=== PATIENT | male | born 1940 | race African-American/Black ===

== ENCOUNTER 2018-09-21 05:28 | Inpatient (IN) | payer OTHER, MEDICAID ==
[~2018-09-21] VITALS: Ht 177.8 cm; Wt 50.3 kg
--- NOTE | 2018-09-21 05:43 | Emergency Room Report ---
History of Present Illness General Chief Complaint: Multiple Trauma/Fall Source: Patient, Family Member (Ovidio Tucker MD) Present Illness HPI This is a 78-year-old male with a history of Crohn's status post colostomy. He also has a history of chronic Mckeon. He presents with chief complaint of weakness and fall. He said he try bedbug at [place] no up and fell. Denies any pain. Initially EMS said knee pain the patient has no complaint. He complaining of feeling weak. No fever or chills. No nausea no vomiting. Nothing made it better. Nothing made it worse. He said his Mckeon is leaking. Further history from his daughter who came later. Patient saw his urologist at the [facility] few days ago. He had a indwelling Mckeon that was removed. He was unable to pass urine so another catheter was placed. According to the daughter , it was very difficult placement. He had to try 3 times before getting it in. He complaining of pain afterward. She didn't take him to the ER and the ER doctor had trouble putting it in. A urologist came in and finally able to put it in. patient is scheduled for TURP procedure this coming Wednesday. According to her, he's been getting weaker in the last couple days. This morning he try to get out of bed and was tangled in the bed sheet. His right foot got caught underneath the dresser. He complaining of right ankle pain. (Ovidio Tucker MD) Allergies: Coded Allergies: No Known Allergies (Unverified , 09/21/18) Patient History Past Medical History: see triage record, old chart reviewed, DM, other - Crohn' s Past Surgical History: other - colostomy Pertinent Family History: none Social History: Denies: smoking Immunizations: other Reviewed Nursing Documentation: PMH: Agreed; PSxH: Agreed (Ovidio Tcuker MD) Nursing Documentation-PMH Past Medical History: No History, Except For Hx Diabetes: Yes (Ovidio Tucker MD) Review of Systems Constitutional: Reports: weakness Eye: Denies: eye pain, blurred vision ENT: Denies: ear pain, nose congestion, throat swelling Respiratory: Denies: cough, shortness of breath Cardiovascular: Denies: chest pain, palpitations Gastrointestinal: Denies: abdominal pain, diarrhea, nausea, vomiting Musculoskeletal: Denies: back pain, joint pain Skin: Denies: rash Neurological: Denies: headache, numbness Endocrine: Denies: increased thirst, increased urine Hematologic/Lymphatic: Denies: easy bruising All Other Systems: negative except mentioned in HPI (Ovidio Tucker MD) Physical Exam Vital Signs Date Time Temp Pulse Resp B/P (MAP) Pulse Ox O2 Delivery O2 Flow Rate FiO2 09/21/18 05:26 100.6 106 12 108/55 93 vitals with fever Sp02 EP Interpretation: reviewed, normal General Appearance: no apparent distress, alert, thin, Chronically Ill Head: normocephalic, atraumatic Eyes: bilateral eye PERRL, bilateral eye EOMI ENT: hearing grossly normal, normal pharynx Neck: full range of motion, supple, no meningismus Respiratory: chest non-tender, lungs clear, normal breath sounds Cardiovascular #1: regular rate, rhythm, no murmur Gastrointestinal: normal bowel sounds, non tender, no mass, no organomegaly, no bruit, non-distended, other - Colostomy bag Genitourinary: other - He has a chronic Mckeon. It's all taped up. Musculoskeletal: back normal, normal range of motion, tender - Tenderness over the right ATFL. no deformity Neurologic: alert Psychiatric: mood/affect normal Skin: warm/dry (Ovidio Tucker MD) Medical Decision Making Diagnostic Impression: Primary Impression: Sepsis Qualified Codes: A41.9 - Sepsis, unspecified organism Additional Impressions: UTI (urinary tract infection) Qualified Codes: N30.00 - Acute cystitis without hematuria Right ankle sprain Qualified Codes: S93.491A - Sprain of other ligament of right ankle, initial encounter ER Course Patient with weakness and low-grade fever. With his multiple Mckeon catheter attempts, I suspect he has a urinary tract infection. Antibiotics given. Because of the difficulty of getting the catheter in, we'll hold off changing the Mckeon for now. Patient will be admitted versus transfer based on his insurance. (Ovidio Tucker MD) ER Course I was notified by registration that patient will be admitted to this hospital. Appropriate O contracted physician contacted, patient also requested Tylenol for discomfort of the lower back and is admitted for further care (Arminda Osuna DO) EKG Diagnostic Results Rate: normal Rhythm: NSR ST Segments: no acute changes (Ovidio Tucker MD) Rhythm Strip Diag. Results EP Interpretation: yes Rate: 97 Rhythm: NSR, no PVC's, no ectopy (Ovidio Tucker MD) Chest X-Ray Diagnostic Results Chest X-Ray Diagnostic Results : Chest X-Ray Ordered: Yes # of Views/Limited/Complete: 1 View Indication: Shortness of Breath EP Interpretation: Yes Interpretation: no consolidation, no effusion, no pneumothorax, no acute cardiopulmonary disease Impression: No acute disease Electronically Signed by: Ovidio Tucker MD (Ovidio Tucker MD) Other X-Ray Diagnostic Results Other X-Ray Diagnostic Results : X-Ray ordered: Rt ankle xrays # of Views/Limited Vs Complete: 3 View Indication: Pain EP Interpretation: Yes Interpretation: no dislocation, no soft tissue swelling, no fractures Impression: No acute disease Electronically Signed by: Ovidio Tucker MD (Ovidio Tucker MD) Last Vital Signs Date Time Temp Pulse Resp B/P (MAP) Pulse Ox O2 Delivery O2 Flow Rate FiO2 09/21/18 05:26 100.6 106 12 108/55 93 Status: improved (Ovidio Tucker MD) Ovidio Tucker MD September 21, 2018 05:43 Arminda Osuna DO September 21, 2018 10:21
[2018-09-21] MEDS ORDERED: Acetaminophen 500mg (ES) tab ORAL ONE (05:45)
--- NOTE | 2018-09-21 05:50 | NUR ---
ED Nurse Note: RECIEVED PT BIBA FROM HOME WITH C/O S/P MECHANICAL FALL, PT IS AWAKE, ALERT AND ORIENTED X 4, PT DENIES CP, SOB AND HAS C/O BILAT KNEE AND ANKLE PAIN, DENIES K.O, PT IMMEDIATELY GOWNED AND PLACED ON CARDIAC MONITORING, ALSO PLACED IV LINE AND LABS DRAWN, WILL RESUME CARE ORDERED AND CLOSELY MONITOR, MD IMMEDIATELY AT BEDSIDE.
[2018-09-21] MEDS ORDERED: Cefepime HCl 1 GM in D5W 55 ML IVPB ONE (06:15)
[2018-09-21] MEDS ORDERED: MEGACE40 MG PO (06:25)
[2018-09-21] MEDS ORDERED: OXYBUTYNIN CHLOR5 M1 ORAL (06:25)
[2018-09-21] MEDS ORDERED: FLOMAX0.4 MG ORAL (06:25)
[2018-09-21] MEDS ORDERED: FERROUS SULFAT325 MG ORAL (06:25)
[2018-09-21 06:27] LABS: BASOPHILS % (AUTO) 0.5 % (0.0-2.0); EOSINOPHILS % (AUTO) 0.3 % (0.0-3.0); HEMATOCRIT 31.8 % (42.0-52.0); HEMOGLOBIN 9.7 G/DL (14.2-18.0); LYMPHOCYTES % (AUTO) 7.5 % (20.0-45.0); MEAN CORPUSCULAR VOLUME 78 FL (80-99); MONOCYTES % (AUTO) 13.1 % (1.0-10.0); NEUTROPHILS % (AUTO) 78.5 % (45.0-75.0); PLATELET COUNT 257 K/UL (150-450); RED BLOOD COUNT 4.08 M/UL (4.70-6.10); WHITE BLOOD COUNT 10.8 K/UL (4.8-10.8)
[2018-09-21] MEDS ORDERED: Acetaminophen Soln 160mg/5ml ORAL ONE ×2 (06:30→10:15)
[2018-09-21] MEDS ORDERED: ACETAMINOPHEN325 M1 ORAL (06:30)
[2018-09-21 06:32] LABS: ANION GAP 10 mmol/L (5-15); BLOOD UREA NITROGEN 32 mg/dL (7-18); CALCIUM 8.5 MG/DL (8.5-10.1); CARBON DIOXIDE 23 MMOL/L (21-32); CHLORIDE 105 MMOL/L (98-107); POTASSIUM 3.9 MMOL/L (3.5-5.1); SODIUM 138 MMOL/L (136-145)
[2018-09-21 06:34] LABS: APPEARANCE,URINE SLIGHTLY CLOUDY; BILIRUBIN, URINE NEGATIVE (NEGATIVE); COLOR,URINE PALE YELLOW; GLUCOSE, URINE (UA) NEGATIVE (NEGATIVE); KETONES,URINE NEGATIVE (NEGATIVE); LEUKOCYTE ESTERASE ,URINE 3+ (NEGATIVE); NITRITE,URINE POSITIVE (NEGATIVE); PH,URINE 5 (4.5-8.0); PROTEIN,URINE 3+ (NEGATIVE); UROBILINOGEN,URINE NORMAL MG/DL (0.0-1.0)
[2018-09-21 06:35] VITALS: BP 129/59
[2018-09-21 06:45] LABS: ALANINE AMINOTRANSFERASE 23 U/L (12-78); ALBUMIN/GLOBULIN RATIO 0.6 (1.0-2.7); ALKALINE PHOSPHATASE 52 U/L (46-116); ASPARTATE AMINO TRANSFERASE 24 U/L (15-37); BILIRUBIN,TOTAL 0.4 MG/DL (0.2-1.0); CKMB 1.5 NG/ML (0.0-3.6); CREATINE KINASE 239 U/L (26-308)
--- NOTE | 2018-09-21 06:45 | NUR ---
ED Nurse Note: PT MEDICATED ORDERED WITH TYLENOL, PT CAN NOT SWALLOW PILLS, NFORMED AND ORDER CHANGED TO LIQUID, PT TOOK AND TOLERATED WELL, WILL CONTINUE TO MONITOR, PT DAUGHTER HAS ARRIVED AT BEDSIDE.
--- NOTE | 2018-09-21 07:14 | NUR ---
HAND-OFF: Report given to JENNIFER NGUYEN , FOR SHIFT CHANGE, PT IN BED RESTING QUIETLY, IV SITE PATENT WITH FLUIDS INFUSING, PT ON CARDIAC MONITORING, NAD NOTED.
[2018-09-21 07:25] VITALS: BP 109/49
[2018-09-21 10:03] VITALS: BP 107/49
--- NOTE | 2018-09-21 10:05 | NUR ---
ED Nurse Note: ordered diet tray as Dr. Grewal ordered.
--- NOTE | 2018-09-21 10:25 | NUR ---
ED Nurse Note: provided breakfast tray for the patient.
--- NOTE | 2018-09-21 10:53 | NUR ---
*-* INSURANCE *-* ER REPORT, MED,VITAL AND LABS WERE SENT TO: [facility] [employer] P:[phone] F: [phone]
--- NOTE | 2018-09-21 11:09 | NUR ---
ED Nurse Note: report given to LAUREL RN, nurse is calling [facility] for a bed.
--- NOTE | 2018-09-21 11:23 | Infectious Diseases Prog Note ---
Assessment/Plan Assessment/Plan Full consult dictated: A) 1) complicated uti, suprapubic catheter, hx uti/abx, bph, kidney stones 2) pmh noted 3) allergies - nkda P) 1) meropenem 2) check urine culture 3) thank you Subjective Allergies: Coded Allergies: No Known Allergies (Unverified , 09/21/18) Objective Vital Signs Last 24 Hour Vital Signs Date Time Temp Pulse Resp B/P (MAP) Pulse Ox O2 Delivery O2 Flow Rate FiO2 09/21/18 10:48 99.5 09/21/18 10:03 99.5 91 19 107/49 100 Room Air 09/21/18 07:25 99.5 80 16 109/49 99 Room Air 09/21/18 07:06 100.4 09/21/18 06:35 100.6 92 20 129/59 99 09/21/18 05:50 106 12 09/21/18 05:26 100.6 106 12 108/55 93 Height (Feet): 5 Height (Inches): 10.00 Weight (Pounds): 111 Laboratory Tests Test 09/21/18 05:50 09/21/18 06:10 White Blood Count 10.8 K/UL (4.8-10.8) Red Blood Count 4.08 M/UL (4.70-6.10) L Hemoglobin 9.7 G/DL (14.2-18.0) L Hematocrit 31.8 % (42.0-52.0) L Mean Corpuscular Volume 78 FL (80-99) L Mean Corpuscular Hemoglobin 23.7 PG (27.0-31.0) L Mean Corpuscular Hemoglobin Concent 30.5 G/DL (32.0-36.0) L Red Cell Distribution Width 18.0 % (11.6-14.8) H Platelet Count 257 K/UL (150-450) Mean Platelet Volume 5.6 FL (6.5-10.1) L Neutrophils (%) (Auto) 78.5 % (45.0-75.0) H Lymphocytes (%) (Auto) 7.5 % (20.0-45.0) L Monocytes (%) (Auto) 13.1 % (1.0-10.0) H Eosinophils (%) (Auto) 0.3 % (0.0-3.0) Basophils (%) (Auto) 0.5 % (0.0-2.0) Sodium Level 138 MMOL/L (136-145) Potassium Level 3.9 MMOL/L (3.5-5.1) Chloride Level 105 MMOL/L (98-107) Carbon Dioxide Level 23 MMOL/L (21-32) Anion Gap 10 mmol/L (5-15) Blood Urea Nitrogen 32 mg/dL (7-18) H Creatinine 2.0 MG/DL (0.55-1.30) H Estimat Glomerular Filtration Rate mL/min (>60) Glucose Level 124 MG/DL (74-106) H Lactic Acid Level 1.30 mmol/L (0.4-2.0) Calcium Level 8.5 MG/DL (8.5-10.1) Total Bilirubin 0.4 MG/DL (0.2-1.0) Aspartate Amino Transf (AST/SGOT) 24 U/L (15-37) Alanine Aminotransferase (ALT/SGPT) 23 U/L (12-78) Alkaline Phosphatase 52 U/L (46-116) Total Creatine Kinase 239 U/L (26-308) Creatine Kinase MB 1.5 NG/ML (0.0-3.6) Creatine Kinase MB Relative Index 0.6 Troponin I 0.014 ng/mL (0.000-0.056) Total Protein 7.7 G/DL (6.4-8.2) Albumin 3.0 G/DL (3.4-5.0) L Globulin 4.7 g/dL Albumin/Globulin Ratio 0.6 (1.0-2.7) L Urine Color Pale yellow Urine Appearance Slightly cloudy Urine pH 5 (4.5-8.0) Urine Specific [place] 1.010 (1.005-1.035) Urine Protein 3+ (NEGATIVE) H Urine Glucose (UA) Negative (NEGATIVE) Urine Ketones Negative (NEGATIVE) Urine Blood 5+ (NEGATIVE) H Urine Nitrite Positive (NEGATIVE) H Urine Bilirubin Negative (NEGATIVE) Urine Urobilinogen Normal MG/DL (0.0-1.0) Urine Leukocyte Esterase 3+ (NEGATIVE) H Urine RBC 10-15 /HPF (0 - 0) H Urine WBC Tntc /HPF (0 - 0) H Urine Squamous Epithelial Cells Occasional /LPF Urine Bacteria Moderate /HPF (NONE) H Alkasspooles,Salam MD September 21, 2018 11:23
--- NOTE | 2018-09-21 11:29 | NUR ---
ED Nurse Note: called [facility] again, they said they need another 10 minutes for the bed.
--- NOTE | 2018-09-21 11:42 | Diagnostic Imaging Report ---
Indication: Altered mental status Technique: One view of the chest Comparison: none Findings: Lungs and pleural spaces are clear. The heart size is normal. Impression: No acute process
--- NOTE | 2018-09-21 12:25 | NUR ---
ED Nurse Note: charge nursed called [facility] for bed. patient has fever 101.[address] Osuna. ice pack applied to the patient.
[2018-09-21 12:30] VITALS: BP 120/47
--- NOTE | 2018-09-21 12:38 | NUR ---
ED Nurse Note: endorsed all care to LAUREL RODRIGUEZ. patient is being transferred to with his belongings. Daughter at bedside Endorsed to LAUREL RODRIGUEZ that patient has fever and ER MD notified.
--- NOTE | 2018-09-21 12:50 | NUR ---
NURSE NOTES: Received report from JENNIFER Nugent. Patient transferred from ED to , family member at the bedside, stated will take all belongings home, signed with RN, IV site on right FA 20G, asymptomatic, patent, intact. Patient in bed resting, no active s/s cardiac, respiratory distress noticed at this time. Endorsed Tylenol given for fever of 100.6. Patient has Mckeon catheter prior to admission, has colostomy on lower right abd, draining well to gravity. VS at the time of arrival, 117/55, HR 87, RR18, T 100.4, on room air 100%. Bed in lowest position ,side rails upx3, call light within reach. Will continue to monitor.
--- NOTE | 2018-09-21 13:00 | NUR ---
NURSE NOTES: Skin assessment done along with physical assessment, skin is intact, on bilateral heels, blanchable redness, skin intact, Cavilon applied, Optifoam dressing on as prevention method.
--- NOTE | 2018-09-21 13:47 | NUR ---
NURSE NOTES: Paged Dr. Clark for admission order, per Dr. Clark in a meeting will call soon for admission order. Will continue to follow up.
--- NOTE | 2018-09-21 14:36 | NUR ---
NURSE NOTES: Received admission order from Dr. Clark, order noted, entered, carried out. Will continue to monitor.
--- NOTE | 2018-09-21 14:37 | NUR ---
NURSE NOTES: Dr. Clark made aware patient admitted with Mckeon Catheter, Per Dr. Clark okrenee to continue Mckeon Catheter. Order noted, entered, carried out.
[2018-09-21] MEDS: D5W w/KCl 20mEq 1,000 ML IV SCH (15:11)
--- NOTE | 2018-09-21 15:55 | NUR ---
NURSE NOTES: Dr. Clark made aware patient and family member would like to speak with medical case manager regarding placement for [facility]. Per isabel Ennis for medical case manager, order noted, entered, carried out. Will continue to monitor.
[2018-09-21 16:00] VITALS: BP 127/55
[2018-09-21] MEDS: Megace 400mg/10ml Susp ORAL SCH (17:32)
--- NOTE | 2018-09-21 19:31 | NUR ---
HAND-OFF: Report given to JENNIFER Gannon.
[2018-09-21 20:00] VITALS: BP 118/55
[2018-09-22] VITALS: BP 117/55
--- NOTE | 2018-09-22 | NUR ---
NURSE NOTES: Received patient from RN Phan, patient is asleep in his bed, daughter by bedside, patient is with high temp 102.2, cooling measures are implemented, Tylenol is administered as ordered, temp re checked, 101.8, will continue to monitor.
[2018-09-22] MEDS: D5W w/KCl 20mEq 1,000 ML IV SCH ×3 (01:12→23:08)
[2018-09-22 04:00] VITALS: BP 109/51
--- NOTE | 2018-09-22 07:13 | NUR ---
HAND-OFF: Report given to Doug RODRIGUEZ.
--- NOTE | 2018-09-22 07:56 | NUR ---
NURSE NOTES: Received patient from Suhail RODRIGUEZ, patient is up in bed resting, no distress noted, bed is locked and lowest position, call light within reach, will continue to monitor. Addendum: 09/22/18 at 0806 by LUCIANO BANSAL RN Received report from Janiya RODRIGUEZ
[2018-09-22 08:00] VITALS: BP 113/56
[2018-09-22] MEDS: Megace 400mg/10ml Susp ORAL SCH ×2 (09:44→17:18)
[2018-09-22 09:53] LABS: BASOPHILS % (AUTO) 0.4 % (0.0-2.0); EOSINOPHILS % (AUTO) 0.6 % (0.0-3.0); HEMOGLOBIN 8.9 G/DL (14.2-18.0); LYMPHOCYTES % (AUTO) 7.5 % (20.0-45.0); MEAN CORPUSCULAR VOLUME 78 FL (80-99); MONOCYTES % (AUTO) 12.9 % (1.0-10.0); NEUTROPHILS % (AUTO) 78.6 % (45.0-75.0); PLATELET COUNT 195 K/UL (150-450); RED BLOOD COUNT 3.71 M/UL (4.70-6.10); RED CELL DISTRIBUTION WIDTH 18.1 % (11.6-14.8); WHITE BLOOD COUNT 12.9 K/UL (4.8-10.8)
--- NOTE | 2018-09-22 10:00 | NUR ---
*-* INSURANCE *-* UPDATED CLINICALS WERE FAXED TO: [facility] [employer] P:[phone] F: [phone]
[2018-09-22 10:20] LABS: PHOSPHORUS 1.9 MG/DL (2.5-4.9)
[2018-09-22 10:30] LABS: ANION GAP 8 mmol/L (5-15); BLOOD UREA NITROGEN 21 mg/dL (7-18); CARBON DIOXIDE 22 MMOL/L (21-32); CHLORIDE 105 MMOL/L (98-107); CHOLESTEROL 159 MG/DL (< 200); HDL CHOLESTEROL 50 MG/DL (40-60); POTASSIUM 3.7 MMOL/L (3.5-5.1); SODIUM 135 MMOL/L (136-145); TRIGLYCERIDES 92 MG/DL (30-150)
--- NOTE | 2018-09-22 11:22 | NUR ---
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 UTI . RIGHT ANKLE SPRAIN VS: BP 107/49,P 106, T 100.6, RR 20, SpO2 93 WBC 12.9, RBC 3.71, H&H 8.9/29.0, BUN 32, Cr 2.0 IS:NS x1L IV CEFEPIME 55ml IVPB TYLENOL 1,000mg ADMITTED TO MED/SURG DCP: RETURN TO HOME
[2018-09-22 12:00] VITALS: BP 118/59
--- NOTE | 2018-09-22 14:17 | Cardiology Report ---
APPROVED REPORT EKG Measurement Heart [id number] IA [id number] Normal sinus rhythm Normal ECG
--- NOTE | 2018-09-22 15:30 | Infectious Diseases Prog Note ---
Assessment/Plan Assessment/Plan Full consult dictated: A) 1) gram neg uti/pyelonephritis, sepsis, leukocytosis, fevers, suprapubic catheter, hx uti/abx, bph, kidney stones 2) pmh noted 3) allergies - nkda P) 1) meropenem 2) check urine culture 3) will f/u Subjective Allergies: Coded Allergies: ASPIRIN (Verified Allergy, Unknown, 09/21/18) Objective Vital Signs Last 24 Hour Vital Signs Date Time Temp Pulse Resp B/P (MAP) Pulse Ox O2 Delivery O2 Flow Rate FiO2 09/22/18 12:00 97.9 82 18 118/59 (78) 97 09/22/18 08:45 Room Air 09/22/18 08:00 97.7 79 18 113/56 (75) 09/22/18 04:00 97.3 82 18 109/51 (70) 09/22/18 00:52 101.8 09/22/18 00:00 102.2 80 20 117/55 (75) 09/21/18 21:00 Room Air 09/21/18 20:00 99.3 92 20 118/55 (76) 09/21/18 16:00 100.8 96 19 127/55 (79) 95 Height (Feet): 5 Height (Inches): 10.00 Weight (Pounds): 111 Microbiology Date/Time Source Procedure Growth Status 09/21/18 06:10 Blood Blood Culture - Preliminary NO GROWTH AFTER 24 HOURS Resulted 09/21/18 05:50 Blood Blood Culture - Preliminary NO GROWTH AFTER 24 HOURS Resulted 09/21/18 06:10 Urine,Clean Catch Urine Culture - Preliminary Gram Negative Colin Resulted Laboratory Tests Test 09/22/18 09:35 White Blood Count 12.9 K/UL (4.8-10.8) H Red Blood Count 3.71 M/UL (4.70-6.10) L Hemoglobin 8.9 G/DL (14.2-18.0) L Hematocrit 29.0 % (42.0-52.0) L Mean Corpuscular Volume 78 FL (80-99) L Mean Corpuscular Hemoglobin 24.0 PG (27.0-31.0) L Mean Corpuscular Hemoglobin Concent 30.7 G/DL (32.0-36.0) L Red Cell Distribution Width 18.1 % (11.6-14.8) H Platelet Count 195 K/UL (150-450) Mean Platelet Volume 5.3 FL (6.5-10.1) L Neutrophils (%) (Auto) 78.6 % (45.0-75.0) H Lymphocytes (%) (Auto) 7.5 % (20.0-45.0) L Monocytes (%) (Auto) 12.9 % (1.0-10.0) H Eosinophils (%) (Auto) 0.6 % (0.0-3.0) Basophils (%) (Auto) 0.4 % (0.0-2.0) Sodium Level 135 MMOL/L (136-145) L Potassium Level 3.7 MMOL/L (3.5-5.1) Chloride Level 105 MMOL/L (98-107) Carbon Dioxide Level 22 MMOL/L (21-32) Anion Gap 8 mmol/L (5-15) Blood Urea Nitrogen 21 mg/dL (7-18) H Creatinine 2.0 MG/DL (0.55-1.30) H Estimat Glomerular Filtration Rate mL/min (>60) Glucose Level 174 MG/DL (74-106) H Hemoglobin A1c 6.3 % (4.3-6.0) H Calcium Level 8.0 MG/DL (8.5-10.1) L Phosphorus Level 1.9 MG/DL (2.5-4.9) L Triglycerides Level 92 MG/DL (30-150) Cholesterol Level 159 MG/DL (< 200) LDL Cholesterol 87 mg/dL (<100) HDL Cholesterol 50 MG/DL (40-60) Cholesterol/HDL Ratio 3.2 (3.3-4.4) L Thyroid Stimulating Hormone (TSH) 4.713 uiU/mL (0.358-3.740) Current Medications Medications (Trade) Dose Ordered Sig/Dev Route PRN Reason Start Time Stop Time Status Last Admin Dose Admin Acetaminophen (Tylenol) 650 mg Q6H PRN ORAL Mild Pain/Temp > 100.5 09/21/18 14:15 10/21/18 14:14 09/21/18 23:38 Dextrose/ Electrolytes 1,000 ml @ 100 mls/hr Q10H IV 09/21/18 15:00 10/21/18 14:59 09/22/18 13:20 Ferrous Sulfate (Feosol) 325 mg DAILY ORAL 09/22/18 09:00 10/22/18 08:59 09/22/18 09:44 Megestrol Acetate (Megace) 400 mg TWICE A DAY ORAL 09/21/18 18:00 10/21/18 17:59 09/22/18 09:44 Meropenem 500 mg/ Sodium Chloride 50 ml @ 100 mls/hr Q12HR@0300,1500 IVPB 09/21/18 15:00 09/26/18 14:59 09/22/18 03:03 Morteza Sierra MD September 22, 2018 15:30
[2018-09-22 16:00] VITALS: BP 101/46
--- NOTE | 2018-09-22 19:38 | NUR ---
HAND-OFF: Report given to Suhail RODRIGUEZ.
[2018-09-22 20:00] VITALS: BP 109/51
--- NOTE | 2018-09-22 20:30 | NUR ---
NURSE NOTES: Pt is in bed, awake and alert. No acute distress noted. Pt has a colostomy, stool was sent last shift for occult blood to lab. Pt's family is by bedside. D5 NS 20mEq KCL 100ml/hr. Mckeon cath in place, draining yellow urine. Bed locked low in position,side rails up and call light within reach.
[2018-09-22] MEDS: Atorvastatin 20mg tab ORAL SCH (23:08)
--- NOTE | 2018-09-22 23:15 | Consultation ---
DATE OF CONSULTATION: 09/22/2018 INFECTIOUS DISEASE CONSULTATION CONSULTING PHYSICIAN: Morteza Sierra M.D. ATTENDING PHYSICIAN: Aubrey Clark M.D. REFERRING PHYSICIAN: Aubrey Clark M.D. REASON FOR CONSULTATION: Gram-negative urinary tract infection, pyelonephritis, sepsis, leukocytosis, fevers, and SIRS criteria. CHIEF COMPLAINT: The patient's chief complaint coming in to the hospital is sepsis and urinary tract infection. HISTORY OF PRESENT ILLNESS: This is a 78-year-old male, who comes in to [facility] with leukocytosis and fevers. The patient has a gram-negative urinary tract infection, likely pyelonephritis with fevers. The patient has sepsis syndrome. Infectious Disease consultation is requested. The patient has a history of recurrent urinary tract infections and history of suprapubic catheter and I saw the patient yesterday and placed him on meropenem. Urine culture grew gram-negative organisms, identification pending. REVIEW OF SYSTEMS: CONSTITUTIONAL: The patient has suprapubic catheter. The patient is alert and responsive. He did come in with fevers and chills. HEAD AND NECK: No head pain or neck pain. CARDIAC: No chest pain. GASTROINTESTINAL: No nausea, vomiting, abdominal pain, or diarrhea. GENITOURINARY: Suprapubic catheter. No CVA tenderness. PULMONARY: No congestion or shortness of breath. SKIN: No rash. EXTREMITY: No extremity pain. NEUROLOGIC: No seizures. PAST MEDICAL HISTORY: The patient's past medical history includes the following. The patient has a past medical history of Crohn's disease, and history of colostomy. It is unclear, I thought it was a suprapubic catheter, but it looks like he also has chronic Mckeon. There is a history of diabetes mellitus. No history of hypertension mentioned in the outside records. It looks like he also has history of urinary tract infections in the past and ankle sprain. MEDICATIONS: Upon reviewing the MAR, he is on the following medications. He is on meropenem, acetaminophen, ferrous sulfate, and Megace. Outside medications were noted and reconciliated. He is on acetaminophen, ferrous sulfate, Megestrol, tamsulosin and and oxybutynin. ALLERGIES: Aspirin. SOCIAL HISTORY: Negative for smoking, alcohol, or drug abuse. FAMILY HISTORY: Noncontributory. PHYSICAL EXAMINATION: VITAL SIGNS: Temperature on admission was 100.6, as high as 102.2, currently temperature is 97.9, pulse rate is 82, respiratory rate 18, blood pressure is 118/59, and saturation 97%. Pulse rate on admission was 106 and respiratory rate on admission was 20. GENERAL: Alert and responsive, in no acute distress. HEAD AND NECK: Oral exam, no thrush. Eye exam, no icterus. Neck is supple. No JVD. Normocephalic. LUNGS: Clear bilaterally. No rhonchi or rales. HEART: Regular. No obvious gallop or murmur. ABDOMEN: Soft. Positive bowel sounds. Nontender. SKIN: No rash. MUSCULOSKELETAL: No effusion. Legs are without cellulitis. PERIPHERAL VASCULAR: No cyanosis or gangrene. GENITOURINARY: He has catheter. Urine is cloudy. LINE SITES: Without phlebitis. NEUROLOGIC: Generalized weakness and responsive. The patient is alert and responsive. LABORATORY DATA: Laboratory data is as follows. White count 12.9 and hemoglobin 8.9. Creatinine 2.0. LFTs were noted. Urinalysis had 3+ leukocyte esterase and too many to count white blood cells. CULTURES: Blood cultures are negative. Urine culture greater than 100,000 gram-negative rods. Chest x-ray showed no acute disease. ASSESSMENT AND PLAN: 1. The patient has sepsis syndrome with SIRS criteria. The patient has gram-negative urinary tract infection and pyelonephritis with sepsis and complicated urinary tract infection. The patient has leukocytosis and fevers. He did come in with tachycardia also. Continue meropenem at this time adjusting for elevated creatinine for gram-negative urinary tract infection, pyelonephritis and sepsis. Continue meropenem. Check urine culture. Check laboratories. 2. Elevated creatinine. 3. Anemia. 4. Per the records, history of diabetes. Blood sugar treatment per primary. 5. Crohn's disease. 6. Colostomy. 7. Chronic catheter. 8. No history of hypertension or cancer. 9. Continue treatment per primary consultants. 10. Allergies to aspirin. 11. Social history is negative. 12. Family history is noncontributory. 13. MAR was noted. 14. Case was discussed with JENNIFER. Salpat Alkasspooles, M.D. DR: SHARON JOB#: [id number] CC:
[2018-09-23] VITALS: BP 112/50
--- NOTE | 2018-09-23 00:15 | History and Physical Report ---
DATE OF ADMISSION: 09/21/2018 HISTORY OF PRESENT ILLNESS: This 78-year-old man came to the hospital because of weakness and a fall at home. He was not badly injured. He was evaluated in the emergency department because of severe weakness. He was found to have fever and urinary tract infection with an indwelling Mckeon catheter. Admission was arranged. He was normotensive with no signs of shock or sepsis. PAST MEDICAL HISTORY: Crohn's disease with colostomy many years ago and chronic Mckeon catheter, which he states is due to kidney stones. It appears he had a urinary retention recently. They had difficulty placing a catheter and so, it has not been removed. He is scheduled for transurethral resection of prostate and evidently has prostate enlargement. He states he is diabetic, but he is on no medications and it is controlled with diet. MEDICATIONS: Reviewed. ALLERGIES: Aspirin. REVIEW OF SYSTEMS: He eats very slowly. He is malnourished. He is on Megace. He has some aches and pains from the fall, but no evidence of severe trauma. He denies any history of cancer, cardiac, or pulmonary disease. PHYSICAL EXAMINATION: GENERAL: The patient is alert and responsive. He appears weak. VITAL SIGNS: He had 102.2 fever since admission, but now it is down to normal. Other vital signs are normal. He appears malnourished with muscle wasting. HEENT: The head is normocephalic. NECK: He has no jugular venous distention. CHEST: Clear. CARDIAC: Rhythm is regular. ABDOMEN: Soft with a colostomy in place. Mckeon catheter is in place. EXTREMITIES: No clubbing, cyanosis, or edema. LABORATORY DATA: Laboratory studies show moderate anemia with hemoglobin 8.9 and MCV is low. Platelets are normal. White count is 12,900. Chemistry shows BUN is 32 and creatinine 2.0. This improved to 21 and 2.0 respectively today with intravenous hydration. Blood sugar is 174. A1c is 6.3. TSH is 4.7, mildly elevated. ASSESSMENT: 1. Severe weakness and fall. 2. Urinary tract infection with history of kidney stones. 3. Mild diabetes. 4. Hyperlipidemia. 5. Anemia. 6. Hypothyroidism. 7. Allergy to aspirin. PLAN: The patient will be treated with antibiotics. Infectious Disease consultation has been obtained. We will start thyroid and cholesterol medication. We will get Physical therapy evaluation. Aubrey Clark M.D. DR: MALVIN JOB#: [id number] CC: Aubrey Clark M.D.; Fax#: [phone]
--- NOTE | 2018-09-23 01:30 | Consultation ---
DATE OF CONSULTATION: 09/22/2018 ADDENDUM INFECTIOUS DISEASES CONSULTATION The patient also has history of . He has suprapubic catheter and Mckeon catheter. He has history of BPH and also has a history of kidney stones in addition to what I discussed above in the previous consultation. Morteza Sierra M.D. DR: SHARON JOB#: [id number] CC:
[2018-09-23 04:00] VITALS: BP 110/62
[2018-09-23] MEDS: Levothyroxine 25mcg tab ORAL SCH (06:19)
[2018-09-23] MEDS: D5W w/KCl 20mEq 1,000 ML IV SCH (06:19)
--- NOTE | 2018-09-23 06:30 | NUR ---
NURSE NOTES: Pt is in bed, awake and alert. NO acute distress noted. D5W with 20mEq KCL running at 100ml/hr. Colostomy bag is draing brown stool.
[2018-09-23 07:27] LABS: BASOPHILS % (AUTO) 0.7 % (0.0-2.0); EOSINOPHILS % (AUTO) 1.9 % (0.0-3.0); HEMATOCRIT 32.8 % (42.0-52.0); HEMOGLOBIN 10.1 G/DL (14.2-18.0); LYMPHOCYTES % (AUTO) 10.5 % (20.0-45.0); MEAN CORPUSCULAR VOLUME 79 FL (80-99); MONOCYTES % (AUTO) 10.2 % (1.0-10.0); NEUTROPHILS % (AUTO) 76.8 % (45.0-75.0); PLATELET COUNT 240 K/UL (150-450); RED BLOOD COUNT 4.17 M/UL (4.70-6.10)
[2018-09-23 07:30] LABS: % IRON SATURATION 4 % (15-50); ANION GAP 10 mmol/L (5-15); BLOOD UREA NITROGEN 20 mg/dL (7-18); CALCIUM 8.6 MG/DL (8.5-10.1); CARBON DIOXIDE 22 MMOL/L (21-32); CHLORIDE 102 MMOL/L (98-107); CREATININE 1.9 MG/DL (0.55-1.30); IRON 9 ug/dL (50-175); SODIUM 134 MMOL/L (136-145); TOTAL IRON BINDING CAPACITY 245 ug/dL (250-450)
--- NOTE | 2018-09-23 07:30 | NUR ---
HAND-OFF: Report given to JENNIFER Ayon.
--- NOTE | 2018-09-23 07:45 | NUR ---
NURSE NOTES: Received patient on bed, awake. IV site intact and patent. Mckeon catheter in place and intact, patent and draining. Heel dressings dry and intact. Bed in low and locked position,c all light in reach. No signs of respiratory distress or pain. Room board updated, will continue to monitor.
[2018-09-23 08:00] VITALS: BP 127/66
[2018-09-23] MEDS: Megace 400mg/10ml Susp ORAL SCH ×2 (09:31→17:46)
--- NOTE | 2018-09-23 11:24 | NUR ---
*-* INSURANCE *-* UPDATED CLINICALS & REVIEW WERE FAXED TO: [facility] P:[phone] F: [phone]
[2018-09-23 12:02] VITALS: BP 116/76
--- NOTE | 2018-09-23 12:02 | NUR ---
RD ASSESSMENT & RECOMMENDATIONS SEE CARE ACTIVITY FOR COMPLETE ASSESSMENT DAILY ESTIMATED NEEDS: Needs based on Underweight, DM 64.8kg 30-35 kcals/kg 5322-8067 total kcals 1-1.5 g protein/kg 65-97 g total protein 25-30 mL/kg 1582-0419 total fluid mLs NUTRITION DIAGNOSIS: Increased kcal and pro needs r/t underweight status and wasting as evidenced by pt @est 86% of [place] Body Weight, noted generalized moderate wasting, currently on appetite stimulants. 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
--- NOTE | 2018-09-23 13:14 | NUR ---
CHARGE NURSE NOTES: Pt is c/o being nauseated. Left message for Dr Clark . Will f/u
--- NOTE | 2018-09-23 14:41 | NUR ---
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 UTI . RIGHT ANKLE SPRAIN VS: BP 112/50, P 65, T 99.6, RR 20, SpO2 97 WBC 11.0, RBC 4.17, Hgb 10.1, Hct 32.8, Na 134, BUN 20, Cr 1.9 IS:MEROPENEM 50ml IVPB D5/ELECTROLYTES x1L IV MEGACE 400mg LIPITOR 20mg SYNTHROID 25mcg ZOFRAN 4mg MED/SURG STATUS
--- NOTE | 2018-09-23 14:44 | NUR ---
P.T Note: P.T evaluation completed and treatment initiated. Please refer to P.T evaluation for current functional status. Pt presented generalized weakness limiting mobility independence. Pt current require MOD A X 1 for bed mobilities, MOD/MAX A X 1 for transfers and MOD A X 1 for Gait/ambulation activities using the FWW. Skilled P.T service is warranted to improve his strength, balance and endurance to increase his mobility independence. Recommend SNF for further rehab [facility]. Thank you for this referral.
--- NOTE | 2018-09-23 14:54 | General Progress Note ---
Assessment/Plan Assessment/Plan: 1. Severe weakness and fall. 2. Urinary tract infection with history of kidney stones. 3. Mild diabetes. 4. Hyperlipidemia. 5. Anemia. 6. Hypothyroidism. 7. Allergy to aspirin. urine R imipemen called ID change IV fluid re Na Zofran for nausea Subjective Constitutional: Reports: malaise, weakness Gastrointestinal/Abdominal: Reports: nausea, poor appetite Allergies: Coded Allergies: ASPIRIN (Verified Allergy, Unknown, 09/21/18) Objective Last 24 Hour Vital Signs Date Time Temp Pulse Resp B/P (MAP) Pulse Ox O2 Delivery O2 Flow Rate FiO2 09/23/18 12:02 97.5 83 20 116/76 (89) 97 09/23/18 09:00 Room Air 09/23/18 08:00 97.5 75 20 127/66 (86) 97 09/23/18 04:00 98.4 65 18 110/62 (78) 97 09/23/18 00:00 99.6 72 18 112/50 (70) 97 09/22/18 21:00 Room Air 09/22/18 20:00 100.7 76 16 109/51 (70) 97 09/22/18 16:00 98.5 75 18 101/46 (64) 97 Intake and Output 09/22/18 09/23/18 19:00 07:00 Intake Total 220 ml 1490 ml Output Total 300 ml 900 ml Balance -80 ml 590 ml Intake Oral 120 ml 240 ml IV Total 100 ml 1250 ml Output Urine Total 650 ml Stool Total 300 ml 250 ml # Bowel Movements 3 Laboratory Tests 09/22/18 17:00: Stool Occult Blood Positive 09/23/18 06:32: White Blood Count 11.0H, Red Blood Count 4.17L, Hemoglobin 10.1L, Hematocrit 32.8L, Mean Corpuscular Volume 79L, Mean Corpuscular Hemoglobin 24.3L, Mean Corpuscular Hemoglobin Concent 30.9L, Red Cell Distribution Width 18.0H, Platelet Count 240, Mean Platelet Volume 5.5L, Neutrophils (%) (Auto) 76.8H, Lymphocytes (%) (Auto) 10.5L, Monocytes (%) (Auto) 10.2H, Eosinophils (%) (Auto ) 1.9, Basophils (%) (Auto) 0.7, Sodium Level 134L, Potassium Level 4.0, Chloride Level 102, Carbon Dioxide Level 22, Anion Gap 10, Blood Urea Nitrogen 20H, Creatinine 1.9H, Estimat Glomerular Filtration Rate , Glucose Level 132H, Calcium Level 8.6, Iron Level 9L, Total Iron Binding Capacity 245L, Percent Iron Saturation 4L, Unsaturated Iron Binding 236 Height (Feet): 5 Height (Inches): 10.00 Weight (Pounds): 111 General Appearance: no apparent distress, cachetic Cardiovascular: normal rate Objective Mckeon, colostomy Aubrey Clark MD September 23, 2018 14:54
[2018-09-23 16:00] VITALS: BP 131/67
[2018-09-23] MEDS: Cefepime HCl 1 GM in D5W 55 ML IVPB SCH (17:46)
--- NOTE | 2018-09-23 19:20 | NUR ---
HAND-OFF: Report given to BELLE Goodwin.
--- NOTE | 2018-09-23 19:30 | NUR ---
NURSE NOTES: RECEIVED PATIENT LYING IN BED, AWAKE, ALERT/ORIENTED X3, NOTED WITH PERIODS OF CONFUSION/FORGETFULNESS, DENIES PAIN. NO SIGNS AND SYMPTOMS OF ACUTE CARDIO RESPIRATORY DISTRESS/SHORTNESS OF BREATH, NO PERIPHERAL EDEMA NOTED. ABDOMEN SOFT/NON DISTENDED/BOWEL SOUNDS AUDIBLE, NO N/V/D, COLOSTOMY INTACT TO LEFT QUADRANT, NOTED WITH LIQUID GREENISH STOOL. SIDE RAILS UP X3/BED IN LOWEST POSITION FOR SAFETY. CALL LIGHT WITHIN REACH. DAUGHTER REMAIN AT BEDSIDE. NAD.
[2018-09-23 20:00] VITALS: BP 113/66
[2018-09-23] MEDS: Atorvastatin 20mg tab ORAL SCH (20:50)
[2018-09-24] VITALS: BP 125/65
[2018-09-24 04:00] VITALS: BP 136/96
[2018-09-24] MEDS: Levothyroxine 25mcg tab ORAL SCH (06:33)
--- NOTE | 2018-09-24 06:53 | NUR ---
NURSE NOTES: RESTED WELL, NO SIGNIFICANT CHANGE OF CONDITION NOTED THROUGHOUT THE NIGHT. SAFETY MAINTAINED. NAD.
--- NOTE | 2018-09-24 07:30 | NUR ---
HAND-OFF: Report given to JENNIFER DOYLE.
[2018-09-24 08:00] VITALS: BP 133/64
--- NOTE | 2018-09-24 08:00 | NUR ---
NURSE NOTES: Patient is awake and alert,IV fluids infusing as ordered.Noted colostomy bag on the right side abdomen ,stoma pink ,liquid green stool noted,Mckeon catheter is in place with santo color urine noted.No complaints at this time,call light within reach,bed alarm is on.
[2018-09-24] MEDS: Megace 400mg/10ml Susp ORAL SCH ×2 (09:45→18:56)
[2018-09-24 12:00] VITALS: BP 131/73
--- NOTE | 2018-09-24 13:45 | NUR ---
PT NOTE: Pt refused to participate in PT treatment session due to feeling fatigued. Family member present. Pt educated on the importance of performing gentle therapeutic exercises for ease of functional ADLs. Pt continued to refuse PT treatment session. Notified nurse of pt status. Left nurse call light within easy reach and all needs met.
--- NOTE | 2018-09-24 14:31 | Infectious Diseases Prog Note ---
Assessment/Plan Assessment/Plan ASSESSMENT AND PLAN: 1. pseudomonas uti, sepsis, fevers, leukocytosis - cefepime - day # 2, plan on 10 day tx course - clinically better - monitor labs 2. Elevated creatinine. 3. Anemia. 4. Per the records, history of diabetes. Blood sugar treatment per primary. 5. Crohn's disease. 6. Colostomy. 7. Chronic catheter. 8. No history of hypertension or cancer. 9. Continue treatment per primary consultants. 10. Allergies to aspirin. 11. Social history is negative. 12. Family history is noncontributory. 13. MAR was noted. 14. Case was discussed with RN. Subjective Constitutional: Denies: fever HEENT: Denies: congestion Respiratory: Denies: shortness of breath Cardiovascular: Denies: chest pain Gastrointestinal/Abdominal: Denies: nausea, vomiting, diarrhea Genitourinary: Reports: other - + catheter Neurologic: Denies: headache Psychiatric: Denies: depression Skin: Denies: rash Hematologic: Denies: bleeding Musculoskeletal: Denies: pain Allergies: Coded Allergies: ASPIRIN (Verified Allergy, Unknown, 09/21/18) Objective Vital Signs Last 24 Hour Vital Signs Date Time Temp Pulse Resp B/P (MAP) Pulse Ox O2 Delivery O2 Flow Rate FiO2 09/24/18 12:00 97.7 95 17 131/73 (92) 98 09/24/18 09:00 Room Air 09/24/18 08:00 99.8 79 18 133/64 (87) 97 09/24/18 04:00 98.3 92 17 136/96 (109) 96 09/24/18 00:00 99.1 79 19 125/65 (85) 98 09/23/18 21:00 Room Air 09/23/18 20:00 97.5 90 16 113/66 (82) 95 09/23/18 16:00 98.4 89 18 131/67 (88) 99 Height (Feet): 5 Height (Inches): 10.00 Weight (Pounds): 111 General Appearance: no acute distress HEENT: normocephalic, atraumatic, anicteric, mucous membranes moist Respiratory/Chest: lungs clear, normal breath sounds, no accessory muscle use Cardiovascular: normal rate, regular rhythm, no gallop/murmur Abdomen: normal bowel sounds, soft, non tender, no organomegaly, non distended Genitourinary: other - + catheter - urine cloudy Extremities: no cyanosis Skin: no rash Neurologic/Psychiatric: vp corporate partnerships II-XII grossly normal, alert, oriented x 3, responsive Lymphatic: no neck adenopathy Musculoskeletal: no effusion Objective chest x-ray - nad Microbiology Date/Time Source Procedure Growth Status 09/21/18 06:10 Blood Blood Culture - Preliminary NO GROWTH AFTER 48 HOURS Resulted 09/21/18 06:10 Urine,Clean Catch Urine Culture - Final Pseudomonas Aeruginosa Complete Labs Test 09/22/18 09:35 09/22/18 17:00 09/23/18 06:32 White Blood Count 12.9 K/UL (4.8-10.8) 11.0 K/UL (4.8-10.8) Red Blood Count 3.71 M/UL (4.70-6.10) 4.17 M/UL (4.70-6.10) Hemoglobin 8.9 G/DL (14.2-18.0) 10.1 G/DL (14.2-18.0) Hematocrit 29.0 % (42.0-52.0) 32.8 % (42.0-52.0) Mean Corpuscular Volume 78 FL (80-99) 79 FL (80-99) Mean Corpuscular Hemoglobin 24.0 PG (27.0-31.0) 24.3 PG (27.0-31.0) Mean Corpuscular Hemoglobin Concent 30.7 G/DL (32.0-36.0) 30.9 G/DL (32.0-36.0) Red Cell Distribution Width 18.1 % (11.6-14.8) 18.0 % (11.6-14.8) Platelet Count 195 K/UL (150-450) 240 K/UL (150-450) Mean Platelet Volume 5.3 FL (6.5-10.1) 5.5 FL (6.5-10.1) Neutrophils (%) (Auto) 78.6 % (45.0-75.0) 76.8 % (45.0-75.0) Lymphocytes (%) (Auto) 7.5 % (20.0-45.0) 10.5 % (20.0-45.0) Monocytes (%) (Auto) 12.9 % (1.0-10.0) 10.2 % (1.0-10.0) Eosinophils (%) (Auto) 0.6 % (0.0-3.0) 1.9 % (0.0-3.0) Basophils (%) (Auto) 0.4 % (0.0-2.0) 0.7 % (0.0-2.0) Sodium Level 135 MMOL/L (136-145) 134 MMOL/L (136-145) Potassium Level 3.7 MMOL/L (3.5-5.1) 4.0 MMOL/L (3.5-5.1) Chloride Level 105 MMOL/L (98-107) 102 MMOL/L (98-107) Carbon Dioxide Level 22 MMOL/L (21-32) 22 MMOL/L (21-32) Anion Gap 8 mmol/L (5-15) 10 mmol/L (5-15) Blood Urea Nitrogen 21 mg/dL (7-18) 20 mg/dL (7-18) Creatinine 2.0 MG/DL (0.55-1.30) 1.9 MG/DL (0.55-1.30) Estimat Glomerular Filtration Rate mL/min (>60) mL/min (>60) Glucose Level 174 MG/DL (74-106) 132 MG/DL (74-106) Hemoglobin A1c 6.3 % (4.3-6.0) Calcium Level 8.0 MG/DL (8.5-10.1) 8.6 MG/DL (8.5-10.1) Phosphorus Level 1.9 MG/DL (2.5-4.9) Triglycerides Level 92 MG/DL (30-150) Cholesterol Level 159 MG/DL (< 200) LDL Cholesterol 87 mg/dL (<100) HDL Cholesterol 50 MG/DL (40-60) Cholesterol/HDL Ratio 3.2 (3.3-4.4) Thyroid Stimulating Hormone (TSH) 4.713 uiU/mL (0.358-3.740) Stool Occult Blood Positive (NEGATIVE) Iron Level 9 ug/dL (50-175) Total Iron Binding Capacity 245 ug/dL (250-450) Percent Iron Saturation 4 % (15-50) Unsaturated Iron Binding 236 ug/dL (112-346) Current Medications Medications (Trade) Dose Ordered Sig/Dev Route PRN Reason Start Time Stop Time Status Last Admin Dose Admin Acetaminophen (Tylenol) 650 mg Q6H PRN ORAL Mild Pain/Temp > 100.5 09/21/18 14:15 10/21/18 14:14 09/22/18 23:09 Atorvastatin Calcium (Lipitor) 20 mg BEDTIME ORAL 09/22/18 21:00 10/22/18 20:59 09/23/18 20:50 Cefepime HCl 1 gm/ Dextrose 55 ml @ 110 mls/hr Q24H IVPB 09/23/18 17:00 09/30/18 16:59 09/23/18 17:46 Dextrose/ Electrolytes 1,000 ml @ 75 mls/hr [id number] IV 09/23/18 15:00 10/23/18 14:59 09/24/18 05:24 Ferrous Sulfate (Feosol) 325 mg DAILY ORAL 09/22/18 09:00 10/22/18 08:59 09/23/18 09:31 Levothyroxine Sodium (Synthroid) 25 mcg DAILY@0630 ORAL 09/23/18 06:30 10/23/18 06:29 09/24/18 06:33 Megestrol Acetate (Megace) 400 mg TWICE A DAY ORAL 09/21/18 18:00 10/21/18 17:59 09/24/18 09:45 Ondansetron HCl (Zofran) 4 mg Q4H PRN IVP Nausea & Vomiting 09/23/18 14:15 10/23/18 14:14 09/23/18 14:22 Morteza Sierra MD September 24, 2018 14:31
[2018-09-24 16:00] VITALS: BP 127/66
[2018-09-24] MEDS: Cefepime HCl 1 GM in D5W 55 ML IVPB SCH (17:05)
--- NOTE | 2018-09-24 18:30 | NUR ---
NURSE NOTES: patient resting IV fluids continue to infuse as ordered.Colostomy bag was changed today,continue noted green liquid stool.Bed alarm on,call light within reach.
--- NOTE | 2018-09-24 19:30 | NUR ---
NURSE NOTES: RECEIVED PATIENT LYING IN BED, AWAKE, DAUGHTER AT BEDSIDE, ALERT/ORIENTED X3, DENIES PAIN. NO SIGNS AND SYMPTOMS OF ACUTE CARDIO RESPIRATORY DISTRESS/SHORTNESS OF BREATH, NO PERIPHERAL EDEMA NOTED, DENIES CHEST PAIN. ABDOMEN FLAT/SOFT/AUDIBLE BOWEL SOUNDS, COLOSTOMY INTACT TO RIGHT LOWER QUADRANT, NOTED WITH GREENISH LIQUID STOOL, COLOSTOMY BAG CHANGED TODAY BY PATIENT, SUPERVISED BY DAUGHTER AND RN, STERN CATHETER INTACT/PATENT, DRAINING VIA GRAVITY, NO SEDEMENT NOTED. NOTED WITH RUPTURED BLISTERS TO LEFT/RIGHT MID BACK, REPOSITIONED FOR COMFORT/PRESSURE RELIEF, ASSISTED AM NURSE WITH WOUND CARE, PATIENT TOLERATED WELL. SIDE RAILS UP X3/BED IN LOWEST POSITION FOR SAFETY. CALL LIGHT WITHIN REACH. NAD.
--- NOTE | 2018-09-24 19:44 | NUR ---
HAND-OFF: Report given to DIONNA ODONNELL.
[2018-09-24 20:00] VITALS: BP 134/62
--- NOTE | 2018-09-24 20:45 | Pulmonology Progress Note ---
Assessment/Plan Assessment/Plan 1. Severe weakness and fall. 2. Urinary tract infection with history of kidney stones. 3. Mild diabetes. 4. Hyperlipidemia. 5. Anemia. 6. Hypothyroidism. 7. Allergy to aspirin. urine abx per ID IVf fall precuations prn nebs BS control; check labs wednesday for nausea Subjective ROS Limited/Unobtainable: Yes Allergies: Coded Allergies: ASPIRIN (Verified Allergy, Unknown, 09/21/18) Subjective sleeping no distress no cp nv or bleeding not getting oob Objective Last 24 Hour Vital Signs Date Time Temp Pulse Resp B/P (MAP) Pulse Ox O2 Delivery O2 Flow Rate FiO2 09/24/18 16:00 98.6 68 19 127/66 (86) 97 09/24/18 12:00 97.7 95 17 131/73 (92) 98 09/24/18 09:00 Room Air 09/24/18 08:00 99.8 79 18 133/64 (87) 97 09/24/18 04:00 98.3 92 17 136/96 (109) 96 09/24/18 00:00 99.1 79 19 125/65 (85) 98 09/23/18 21:00 Room Air Intake and Output 09/23/18 09/24/18 18:59 06:59 Intake Total 590 ml 885 ml Output Total 800 ml 2500 ml Balance -210 ml -1615 ml Intake Oral 360 ml 60 ml IV Total 230 ml 825 ml Output Urine Total 800 ml 1300 ml Stool Total 1200 ml General Appearance: cachetic Respiratory/Chest: rhonchi Cardiovascular: normal rate, regular rhythm Abdomen: soft, non tender, no organomegaly Neurologic/Psychiatric: disoriented Current Medications Medications (Trade) Dose Ordered Sig/Dev Route PRN Reason Start Time Stop Time Status Last Admin Dose Admin Acetaminophen (Tylenol) 650 mg Q6H PRN ORAL Mild Pain/Temp > 100.5 09/21/18 14:15 10/21/18 14:14 09/22/18 23:09 Atorvastatin Calcium (Lipitor) 20 mg BEDTIME ORAL 09/22/18 21:00 10/22/18 20:59 09/23/18 20:50 Cefepime HCl 1 gm/ Dextrose 55 ml @ 110 mls/hr Q24H IVPB 09/23/18 17:00 09/30/18 16:59 09/24/18 17:05 Dextrose/ Electrolytes 1,000 ml @ 75 mls/hr [id number] IV 09/23/18 15:00 10/23/18 14:59 09/24/18 18:56 Ferrous Sulfate (Feosol) 325 mg DAILY ORAL 09/22/18 09:00 10/22/18 08:59 09/23/18 09:31 Levothyroxine Sodium (Synthroid) 25 mcg DAILY@0630 ORAL 09/23/18 06:30 10/23/18 06:29 09/24/18 06:33 Megestrol Acetate (Megace) 400 mg TWICE A DAY ORAL 09/21/18 18:00 10/21/18 17:59 09/24/18 18:56 Ondansetron HCl (Zofran) 4 mg Q4H PRN IVP Nausea & Vomiting 09/23/18 14:15 10/23/18 14:14 09/23/18 14:22 Anais Combs DO September 24, 2018 20:45
[2018-09-24] MEDS: Atorvastatin 20mg tab ORAL SCH (21:07)
[2018-09-25] VITALS: BP 130/60
[2018-09-25 04:00] VITALS: BP 129/62
[2018-09-25] MEDS: Levothyroxine 25mcg tab ORAL SCH (06:25)
--- NOTE | 2018-09-25 06:53 | NUR ---
NURSE NOTES: RESTED WELL, NO SIGNIFICANT CHANGE OF CONDITION NOTED THROUGHOUT THE NIGHT,. SAFETY MAINTAINED. NAD.
[2018-09-25 07:05] LABS: ANION GAP 10 mmol/L (5-15); BLOOD UREA NITROGEN 21 mg/dL (7-18); CALCIUM 9.1 MG/DL (8.5-10.1); CARBON DIOXIDE 21 MMOL/L (21-32); CHLORIDE 107 MMOL/L (98-107); CREATININE 1.7 MG/DL (0.55-1.30); POTASSIUM 4.4 MMOL/L (3.5-5.1); SODIUM 138 MMOL/L (136-145)
[2018-09-25 07:29] LABS: BASOPHILS % (AUTO) 0.3 % (0.0-2.0); EOSINOPHILS % (AUTO) 1.3 % (0.0-3.0); HEMATOCRIT 30.9 % (42.0-52.0); HEMOGLOBIN 9.6 G/DL (14.2-18.0); LYMPHOCYTES % (AUTO) 11.4 % (20.0-45.0); MEAN CORPUSCULAR VOLUME 78 FL (80-99); MONOCYTES % (AUTO) 13.4 % (1.0-10.0); NEUTROPHILS % (AUTO) 73.6 % (45.0-75.0); PLATELET COUNT 339 K/UL (150-450); RED BLOOD COUNT 3.97 M/UL (4.70-6.10); RED CELL DISTRIBUTION WIDTH 17.7 % (11.6-14.8); WHITE BLOOD COUNT 11.5 K/UL (4.8-10.8)
--- NOTE | 2018-09-25 08:08 | NUR ---
NURSE NOTES: Patient is awake and alert,sitting up in bed and eating breakfast,IV fluids infusing as ordered.Colostomy bag in place and draining dark green liquid.Mckeon catheter is in place draining santo color urine.Bed alarm is on,call light within reach.
[2018-09-25] MEDS: Megace 400mg/10ml Susp ORAL SCH ×2 (08:22→17:13)
[2018-09-25 09:00] VITALS: BP 133/62
[2018-09-25 12:00] VITALS: BP 130/66
[2018-09-25 16:02] VITALS: BP 134/61
[2018-09-25] MEDS: Cefepime HCl 1 GM in D5W 55 ML IVPB SCH (17:06)
--- NOTE | 2018-09-25 18:00 | NUR ---
NURSE NOTES: patient resting,IV fluid cotinues to infuse as ordered.Bed alarm on,call light within reach.
--- NOTE | 2018-09-25 18:31 | Pulmonology Progress Note ---
Assessment/Plan Assessment/Plan 1. Severe weakness and fall. 2. Urinary tract infection with history of kidney stones. 3. Mild diabetes. 4. Hyperlipidemia. 5. Anemia. 6. Hypothyroidism. 7. Allergy to aspirin. urine abx per ID IVf fall precuations prn nebs BS control; check labs today stable dc planning Subjective Constitutional: Reports: no symptoms HEENT: Repors: no symptoms Respiratory: Reports: no symptoms Cardiovascular: Reports: no symptoms Gastrointestinal/Abdominal: Reports: no symptoms Allergies: Coded Allergies: ASPIRIN (Verified Allergy, Unknown, 09/21/18) Subjective complains of spams in the leg and pain no distress no cp nv or bleeding not getting oob Objective Last 24 Hour Vital Signs Date Time Temp Pulse Resp B/P (MAP) Pulse Ox O2 Delivery O2 Flow Rate FiO2 09/25/18 16:02 98.5 91 134/61 (85) 18 09/25/18 12:00 99.0 88 17 130/66 (87) 96 09/25/18 09:00 Room Air 09/25/18 09:00 98.1 90 20 133/62 (85) 98 09/25/18 04:00 99.9 86 16 129/62 (84) 97 09/25/18 00:00 100.5 75 20 130/60 (83) 97 09/24/18 20:44 Room Air 09/24/18 20:00 98.2 84 18 134/62 (86) 99 Intake and Output 09/24/18 09/25/18 19:00 07:00 Intake Total 600 ml 1065 ml Output Total 950 ml 1400 ml Balance -350 ml -335 ml Intake Oral 240 ml IV Total 600 ml 825 ml Output Urine Total 800 ml 800 ml Stool Total 150 ml 600 ml General Appearance: cachetic Respiratory/Chest: lungs clear Cardiovascular: regular rhythm Abdomen: soft, non tender, no organomegaly Extremities: no cyanosis Neurologic/Psychiatric: abnormal gait, alert Laboratory Tests 09/25/18 04:40: White Blood Count 11.5H, Red Blood Count 3.97L, Hemoglobin 9.6L, Hematocrit 30.9L, Mean Corpuscular Volume 78L, Mean Corpuscular Hemoglobin 24.3L, Mean Corpuscular Hemoglobin Concent 31.1L, Red Cell Distribution Width 17.7H, Platelet Count 339, Mean Platelet Volume 4.9L, Neutrophils (%) (Auto) 73.6, Lymphocytes (%) (Auto) 11.4L, Monocytes (%) (Auto) 13.4H, Eosinophils (%) (Auto ) 1.3, Basophils (%) (Auto) 0.3, Sodium Level 138, Potassium Level 4.4, Chloride Level 107, Carbon Dioxide Level 21, Anion Gap 10, Blood Urea Nitrogen 21H, Creatinine 1.7H, Estimat Glomerular Filtration Rate , Glucose Level 126H, Calcium Level 9.1 Current Medications Medications (Trade) Dose Ordered Sig/Dev Route PRN Reason Start Time Stop Time Status Last Admin Dose Admin Acetaminophen (Tylenol) 650 mg Q6H PRN ORAL Mild Pain/Temp > 100.5 09/21/18 14:15 10/21/18 14:14 09/22/18 23:09 Atorvastatin Calcium (Lipitor) 20 mg BEDTIME ORAL 09/22/18 21:00 10/22/18 20:59 09/24/18 21:07 Cefepime HCl 1 gm/ Dextrose 55 ml @ 110 mls/hr Q24H IVPB 09/23/18 17:00 09/30/18 16:59 09/25/18 17:06 Dextrose/ Electrolytes 1,000 ml @ 75 mls/hr [id number] IV 09/23/18 15:00 10/23/18 14:59 09/25/18 07:57 Ferrous Sulfate (Feosol) 325 mg DAILY ORAL 09/22/18 09:00 10/22/18 08:59 09/25/18 08:22 Levothyroxine Sodium (Synthroid) 25 mcg DAILY@0630 ORAL 09/23/18 06:30 10/23/18 06:29 09/25/18 06:25 Megestrol Acetate (Megace) 400 mg TWICE A DAY ORAL 09/21/18 18:00 10/21/18 17:59 09/25/18 17:13 Ondansetron HCl (Zofran) 4 mg Q4H PRN IVP Nausea & Vomiting 09/23/18 14:15 10/23/18 14:14 09/23/18 14:22 Anais Combs DO September 25, 2018 18:31
--- NOTE | 2018-09-25 19:11 | NUR ---
HAND-OFF: Report given to DIONNA ODONNELL.
--- NOTE | 2018-09-25 19:30 | NUR ---
NURSE NOTES: RECEIVED PATIENT LYING IN BED, AWAKE, ALERT/ORIENTED X3, VERBALLY RESPONSIVE, DENIES PAIN. NO SIGNS AND SYMPTOMS OF ACUTE CARDIO RESPIRATORY DISTRESS/SHORTNESS OF BREATH, NO PERIPHERAL EDEMA NOTED, LOWER EXTREMITIES ELEVATED ON PILLOW LENGTHWISE WITH HEELS FLOATING FOR PREVENTIVE CARE. COLOSTOMY INTACT TO RIGHT LOWER QUADRANT, NOTED WITH LIQUID GREED SUBSTANCE. STERN CATHETER INTACT/PATENT, DRAINING YELLOW URINE, NOTED WITH SEDEMENT, NO HEMATURIA. SIDE RAILS UP X3/BED IN LOWEST POSITION FOR SAFETY. CALL LIGHT WITHIN REACH. NAD.
[2018-09-25 20:00] VITALS: BP 136/72
[2018-09-25] MEDS: Atorvastatin 20mg tab ORAL SCH (21:24)
[2018-09-26] VITALS: BP 145/79
[2018-09-26 04:00] VITALS: BP 139/77
[2018-09-26] MEDS: Levothyroxine 25mcg tab ORAL SCH (05:55)
--- NOTE | 2018-09-26 07:30 | NUR ---
HAND-OFF: Report given to JENNIFER DOYLE.
--- NOTE | 2018-09-26 07:52 | NUR ---
NURSE NOTES: Patient is awake and alert,sitting up in bed and eating breakfast.IV fluids infusing as ordered. Mckeon catheter in place and draining santo color urine.Colostomy bag intact with liquid dark green liquid stool noted.Bed alarm on ,call light within reach.
[2018-09-26 08:00] VITALS: BP 126/64
[2018-09-26] MEDS ORDERED: CEFEPIME-D1 GM/50 ML IVPB (08:30)
[2018-09-26] MEDS ORDERED: SYNTHROID25 MCG ORAL (08:30)
[2018-09-26] MEDS ORDERED: MEGACE ORA400 MG/10 ORAL (08:30)
[2018-09-26] MEDS ORDERED: LIPITOR20 MG ORAL (08:30)
--- NOTE | 2018-09-26 08:32 | General Progress Note ---
Assessment/Plan Assessment/Plan: 1. Severe weakness and fall. 2. Urinary tract infection with history of kidney stones. 3. Mild diabetes. 4. Hyperlipidemia. 5. Anemia. 6. Hypothyroidism. 7. Allergy to aspirin. refuses PT at times T 100 dc to snf on IV abx to complete 10 d course Subjective Constitutional: Reports: other - pain all over Allergies: Coded Allergies: ASPIRIN (Verified Allergy, Unknown, 09/21/18) Objective Last 24 Hour Vital Signs Date Time Temp Pulse Resp B/P (MAP) Pulse Ox O2 Delivery O2 Flow Rate FiO2 09/26/18 05:06 99.0 09/26/18 04:00 100.5 84 20 139/77 (97) 99 09/26/18 00:00 98.9 89 20 145/79 (101) 97 09/25/18 21:02 Room Air 09/25/18 20:00 99.0 92 20 136/72 (93) 99 09/25/18 16:02 98.5 91 134/61 (85) 18 09/25/18 12:00 99.0 88 17 130/66 (87) 96 09/25/18 09:00 Room Air 09/25/18 09:00 98.1 90 20 133/62 (85) 98 Intake and Output 09/25/18 09/26/18 19:00 07:00 Intake Total 937.5 ml 1005 ml Output Total 450 ml 1500 ml Balance 487.5 ml -495 ml Intake Oral 150 ml 180 ml IV Total 787.5 ml 825 ml Output Urine Total 300 ml 800 ml Stool Total 150 ml 700 ml Height (Feet): 5 Height (Inches): 10.00 Weight (Pounds): 111 General Appearance: no apparent distress, alert, cachetic Cardiovascular: normal rate Respiratory/Chest: lungs clear Objective Cmkeon, colostomy Aubrey Clark MD September 26, 2018 08:32
[2018-09-26] MEDS: Megace 400mg/10ml Susp ORAL SCH ×2 (08:46→18:17)
[2018-09-26 12:00] VITALS: BP 129/69
--- NOTE | 2018-09-26 13:26 | NUR ---
*-* INSURANCE *-* UPDATED CLINICALS & REVIEW WERE FAXED TO: [facility] P:[phone] F: [phone]
--- NOTE | 2018-09-26 13:34 | NUR ---
RD ASSESSMENT & RECOMMENDATIONS SEE CARE ACTIVITY FOR COMPLETE ASSESSMENT DAILY ESTIMATED NEEDS: Needs based on Underweight, DM 64.8kg 30-35 kcals/kg 4758-0273 total kcals 1-1.5 g protein/kg 65-97 g total protein 25-30 mL/kg 4381-1007 total fluid mLs NUTRITION DIAGNOSIS: Increased kcal and pro needs r/t underweight status and wasting as evidenced by pt @est 86% of [place] Body Weight, noted generalized moderate wasting, currently on an appetite stimulant. CURRENT DIET:CCHO MED SOFT EASY CHEW PO DIET RECOMMENDATIONS: Liberalized REGULAR DIET w/ poor PO ADDITIONAL RECOMMENDATIONS: 1) [employer]UCING [employer] EVAL FOR APPROPRIATE TEXTURE 2) RE-CALIBRATE BED SCALE FOR ACCURATE CBW EMR WT: 111# VS BED SCALE WT: 142.6# 3) ASSISTANCE W/ ALL MEALS FOR MAX PO INTAKE 4) Glucerna TID w/ meals (250 kcal/10g pro each) 5) NISS prn: h/o DM w/ A1C of 6.3 Addendum: 09/26/18 at [address] ADDENDUM: f/up with wound care eval. Add MVI x 1 as supplement as for skin integrity
--- NOTE | 2018-09-26 15:00 | Infectious Diseases Prog Note ---
Assessment/Plan Assessment/Plan ASSESSMENT AND PLAN: 1. pseudomonas uti, sepsis, fevers, leukocytosis - cefepime - day # 4, plan on 10 day tx course - clinically better - monitor labs 2. Elevated creatinine. 3. Anemia. 4. Per the records, history of diabetes. Blood sugar treatment per primary. 5. Crohn's disease. 6. Colostomy. 7. Chronic catheter. 8. No history of hypertension or cancer. 9. Continue treatment per primary consultants. 10. Allergies to aspirin. 11. Social history is negative. 12. Family history is noncontributory. 13. MAR was noted. 14. Case was discussed with RN. Subjective Constitutional: Denies: fever HEENT: Denies: congestion Respiratory: Denies: shortness of breath Cardiovascular: Denies: chest pain Gastrointestinal/Abdominal: Denies: nausea, vomiting, diarrhea Genitourinary: Reports: other - + brown Neurologic: Denies: headache Psychiatric: Denies: depression Skin: Denies: rash Hematologic: Denies: bleeding Musculoskeletal: Denies: pain Allergies: Coded Allergies: ASPIRIN (Verified Allergy, Unknown, 09/21/18) Objective Vital Signs Last 24 Hour Vital Signs Date Time Temp Pulse Resp B/P (MAP) Pulse Ox O2 Delivery O2 Flow Rate FiO2 09/26/18 09:00 Room Air 09/26/18 08:00 97.7 79 17 126/64 (84) 98 09/26/18 05:06 99.0 09/26/18 04:00 100.5 84 20 139/77 (97) 99 09/26/18 00:00 98.9 89 20 145/79 (101) 97 09/25/18 21:02 Room Air 09/25/18 20:00 99.0 92 20 136/72 (93) 99 09/25/18 16:02 98.5 91 134/61 (85) 18 Height (Feet): 5 Height (Inches): 10.00 Weight (Pounds): 111 General Appearance: no acute distress HEENT: normocephalic, atraumatic, anicteric, mucous membranes moist Respiratory/Chest: lungs clear, normal breath sounds, no respiratory distress, no accessory muscle use Cardiovascular: normal rate, regular rhythm, no gallop/murmur, no JVD Abdomen: normal bowel sounds, soft, non tender, no organomegaly, non distended Genitourinary: other - + brown Extremities: no cyanosis Skin: no rash Neurologic/Psychiatric: container 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 II-XII grossly normal, alert, responsive Lymphatic: no neck adenopathy Musculoskeletal: no effusion Objective chest x-ray - nad Labs Test 09/25/18 04:40 White Blood Count 11.5 K/UL (4.8-10.8) Red Blood Count 3.97 M/UL (4.70-6.10) Hemoglobin 9.6 G/DL (14.2-18.0) Hematocrit 30.9 % (42.0-52.0) Mean Corpuscular Volume 78 FL (80-99) Mean Corpuscular Hemoglobin 24.3 PG (27.0-31.0) Mean Corpuscular Hemoglobin Concent 31.1 G/DL (32.0-36.0) Red Cell Distribution Width 17.7 % (11.6-14.8) Platelet Count 339 K/UL (150-450) Mean Platelet Volume 4.9 FL (6.5-10.1) Neutrophils (%) (Auto) 73.6 % (45.0-75.0) Lymphocytes (%) (Auto) 11.4 % (20.0-45.0) Monocytes (%) (Auto) 13.4 % (1.0-10.0) Eosinophils (%) (Auto) 1.3 % (0.0-3.0) Basophils (%) (Auto) 0.3 % (0.0-2.0) Sodium Level 138 MMOL/L (136-145) Potassium Level 4.4 MMOL/L (3.5-5.1) Chloride Level 107 MMOL/L (98-107) Carbon Dioxide Level 21 MMOL/L (21-32) Anion Gap 10 mmol/L (5-15) Blood Urea Nitrogen 21 mg/dL (7-18) Creatinine 1.7 MG/DL (0.55-1.30) Estimat Glomerular Filtration Rate mL/min (>60) Glucose Level 126 MG/DL (74-106) Calcium Level 9.1 MG/DL (8.5-10.1) Microbiology Date/Time Source Procedure Growth Status 09/21/18 06:10 Blood Blood Culture - Final NO GROWTH AFTER 5 DAYS Complete 09/21/18 06:10 Urine,Clean Catch Urine Culture - Final Pseudomonas Aeruginosa Complete Current Medications Medications (Trade) Dose Ordered Sig/Dev Route PRN Reason Start Time Stop Time Status Last Admin Dose Admin Acetaminophen (Tylenol) 650 mg Q6H PRN ORAL Mild Pain/Temp > 100.5 09/21/18 14:15 10/21/18 14:14 09/26/18 04:36 Atorvastatin Calcium (Lipitor) 20 mg BEDTIME ORAL 09/22/18 21:00 10/22/18 20:59 09/25/18 21:24 Cefepime HCl 1 gm/ Dextrose 55 ml @ 110 mls/hr Q24H IVPB 09/23/18 17:00 09/30/18 16:59 09/25/18 17:06 Dextrose/ Electrolytes 1,000 ml @ 75 mls/hr [id number] IV 09/23/18 15:00 10/23/18 14:59 09/26/18 13:11 Ferrous Sulfate (Feosol) 325 mg DAILY ORAL 09/22/18 09:00 10/22/18 08:59 09/26/18 08:46 Levothyroxine Sodium (Synthroid) 25 mcg DAILY@0630 ORAL 09/23/18 06:30 10/23/18 06:29 09/26/18 05:55 Megestrol Acetate (Megace) 400 mg TWICE A DAY ORAL 09/21/18 18:00 10/21/18 17:59 09/26/18 08:46 Ondansetron HCl (Zofran) 4 mg Q4H PRN IVP Nausea & Vomiting 09/23/18 14:15 10/23/18 14:14 09/23/18 14:22 Morteza Sierra MD September 26, 2018 15:00
--- NOTE | 2018-09-26 15:18 | NUR ---
[employer]CRE[employer] NOTES SPOKE WITH DOLORES FROM [facility], PT ACCEPTED TO [facility] 104 BED A. NURSE TO GIVE REPORT TO [phone]. INSURANCE ARRANGED TRANSPORTATION FOR [employer]ET[employer] INTERN @ 1700. FAMILY MADE AWARE.
[2018-09-26 16:19] VITALS: BP 136/71
[2018-09-26] MEDS: Cefepime HCl 1 GM in D5W 55 ML IVPB SCH (18:18)
--- NOTE | 2018-09-26 19:25 | NUR ---
NURSE NOTES: Patient daughter Rosalee called and stated that she does not want her Farther transferred to [facility].Patient daughter went to see the facility and does not like the facility.Charge Nurse made aware and will leave message with case manager specialist.
--- NOTE | 2018-09-26 19:35 | NUR ---
HAND-OFF: Report given to ANAND RODRIGUEZ.
[2018-09-26 20:00] VITALS: BP 129/65
--- NOTE | 2018-09-26 20:00 | NUR ---
NURSE NOTES: Pt is in bed, awake and verbal. No acute distress noted. Vitals stable. Pt has a discharge order. Pt's daughter Mary Grace is at bedside. Daughter is refusing to send pt to [facility] as family service caseworker had arranged transfer. Ambulance personnel were turned away. Daughter called [facility] to inform her wishes. Charge nurse made aware. Mary Grace contemplating getting the patient discharged tomorrow if a better SNF is not found and getting the patient admitted to [facility]. She will come tomorrow to obtain medical records. Pt's colostomy bag emptied, which is draining greenish lig output. Pt has a small bruise on the right lower back, covered with Optifoam. Bed locked low in position,side rails up and call light within reach. Pt will be monitored.
--- NOTE | 2018-09-26 21:00 | NUR ---
NURSE NOTES: Dr. Clark was called to notify that pt's daughter did not agree with discharge to [facility]. Dr. Bauer answered , he is the covering doctor. Dr. Bauer to inform Dr. Clark.
[2018-09-26] MEDS: Atorvastatin 20mg tab ORAL SCH (21:09)
--- NOTE | 2018-09-26 22:00 | NUR ---
NURSE NOTES: Maddi from Health long term care administrator called regarding pt's discharge. When informed that pat is still here because family refused the SNF arranged by case management. Maddi said that the family will be contacted to see if the patient could be transferred to [facility]. Maddi said that insurance might not cover for the extra stay of extra day. Maddi to speak to daughter Mary Grace and call back.
--- NOTE | 2018-09-26 22:30 | NUR ---
NURSE NOTES: Pt's daughter Mary Grace is here in the unit. She informed RN that she had spoken to Maddi of health customer care professional regarding discharge. Mary Grace did not want to take patient to [facility]. She wanted the patient to be discharged home so she can take the patient to [facility]. Mary Grace wanted to obtain Medical records of patient, Mary Grace was informed to go to the medical records during bossiness hours. Nursing supervisor shuttle preparation Michelle Nick and charge nurse Rabia RODRIGUEZ were involved. Michelle Nick provided Mary Grace with telephone number and fax number to request for records from [facility].
--- NOTE | 2018-09-26 23:15 | NUR ---
NURSE NOTES: Pt is discharge home with daughter Mary Grace in stable condition. No acute distress noted during discharge. Vitals stable. Pt's colostomy bag and Mckeon cath intact in place during discharge. IV cath removed. ID band removed. Pt was given discharge instructions. Pt was instructed to continue cefepime 1 gm IV Piggyback daily for 8 more days. Medication reconciliation list was given at discharge. No belongings at discharge, daughter had taken everything home. Pt was taken downstairs in a wheelchair by ABRASIVE GRADER HELPER to a private car in stable condition. Pt was awake alert and verbal. Picture was taken of pt's right lower back skin bruise. Pt's daughter said she taking the patient to [facility]. Dr. spicer covering for Dr. Clark is called and informed of discharge.
--- NOTE | 2018-09-27 10:11 | Discharge Summary ---
Discharge Summary Discharge Summary _ DATE OF ADMISSION: 09/21/2018 DATE OF DISCHARGE: 619 DISCHARGED BY: Dr. Clark REASON FOR ADMISSION: 78 years old male with past medical history of Crohn's disease with colostomy, chronic Mckeon catheter due to kidney stones, diabetes mellitus, controlled with diet, presented to the hospital due to generalized weakness and mechanical fall at home. According to patient , he apparently had a urinary retention and had a chronic Mckeon catheter. Patient was scheduled for transurethral resection of prostate due to prostate enlargement. Upon evaluation patient was found to have fever and urinary tract infection with indwelling Mckeon catheter . No significant injuries found upon evaluation in emergency department Vital signs reveal low-grade fever, tachycardia, stable blood pressure. Urinalysis revealed evidence of UTI. BUN 32, creatinine 2.0. Troponin negative. Initial WBC 10.8, hemoglobin 9.7, hematocrit 31.5. Chest x-ray revealed no acute cardiopulmonary pathology. Patient subsequently was admitted for further management. CONSULTANTS: ID specialist HOSPITAL COURSE: Patient admitted to medical surgical floor. Patient started on empiric antibiotic. Infectious disease specialist followed. Fall precautions maintained. Patient was working with physical therapist. Blood cultures were negative. Urine culture revealed Pseudomonas aeruginosa. Antibiotic regimen was optimized as per ID specialist recommendation. Patient will need to continue antibiotics outpatient to complete the course of 10 days treatment, as per ID specialist recommendation. Fevers resolved, leukocytosis which started the next day after admission, trending down. Hemoglobin and hematocrit were closely monitored with goal to keep hemoglobin above 7. Anemia work-up was consistent with anemia of chronic disease. Stool for occult blood was positive Hemoglobin and hematocrit remained at baseline, prior to discharge hemoglobin 9.6 hematocrit 30.9. Patient with history of Crohn disease , colostomy status. Outpatient GI work- up recommended. Home medication resumed, including levothyroxine, statin, iron supplement. Megace was added for appetite stimulation. Patient was provided with no concentrated sweets diet , and blood sugar remained stable Renal parameters and electrolytes were closely monitored, nephrotoxins were avoided as possible. Creatinine from 2.0 down to 1.7. Lipid panel was stable. Mckeon catheter and colostomy care provided. Supportive care provided [facility] . FINAL DIAGNOSES: Sepsis Pseudomonas UTI with history of kidney stones Severe weakness and mechanical fall , likely due to urinary tract infection Hyperlipidemia Mild diabetes / controlled with diet Hypothyroidism Anemia Elevated creatinine - acute kidney injury versus chronic renal insufficiency Crohn's disease Colostomy status DISCHARGE MEDICATIONS: See Medication Reconciliation list. DISCHARGE INSTRUCTIONS: [facility] was discharged to the [facility] facility for [facility] antibiotic. Follow up with medical doctor at the facility. I have been assigned to dictate discharge summary for this account. I was not involved in the patient's management. Thalia Zavala NP September 27, 2018 10:11
== END 2018-09-26 23:15 | disposition home or self-care (01) | DRG 872 ==
LOC: EDBD 05:28 → EMR 06:08 → 4E 08:50 → EDBEDREQ 11:02
DX: A41.9 Sepsis, unspecified organism (principal); N39.0 Urinary tract infection, site not specified; K50.90 Crohn's disease, unspecified, without complications; B96.5 Pseudomonas (aeruginosa) (mallei) (pseudomallei) as the cause of diseases classified elsewhere; R53.1 Weakness; N40.0 Benign prostatic hyperplasia without lower urinary tract symptoms; Z88.6 Allergy status to analgesic agent; Z91.81 History of falling; E11.9 Type 2 diabetes mellitus without complications; E78.5 Hyperlipidemia, unspecified; D64.9 Anemia, unspecified; E03.9 Hypothyroidism, unspecified; Z93.3 Colostomy status; M79.606 Pain in leg, unspecified
CPT/HCPCS: 36415; 71045; 80048; 80053; 80061; 81003; 82270; 82550; 82553; 82962; 83036; 83540; 83550; 83605; 84100; 84443; 84484; 85025; 87040; 87086; 87181; 93005; 96365; 99285; J2405